=== PATIENT | female | born 1970 | race African-American/Black ===

== ENCOUNTER 2021-11-16 12:30 | Outpatient (CLI) | payer OTHER, SELFPAY ==
--- NOTE | ~2021-11-16 | US_ITS ---
EXAMINATION: US pelvic complete w TV EXAM DATE: 11/16/2021 13:31 INDICATION: N95.0 - Postmenopausal bleeding . TECHNIQUE: Pelvic transabdominal and transvaginal sonogram was performed. There are multiple graysca le and Doppler images available for interpretation. There is no prior study for comparison. FINDINGS: Uterus measures 7.1 x 7.1 x 5.3 cm, with multiple fibroids, largest measuring 5 cm. Endome trial stripe measures 5 mm, within normal limits. There is no free pelvic fluid. Right adnexa: The ovary is not identified. There is no adnexal mass. Left adnexa: The ovary measures 2.3 x 1.7 x 1.0 cm and is morphologically normal. Ovarian vascular fl ow confirmed. IMPRESSION: 1. Fibroid uterus. 2. Endometrial stripe within normal limits. Reviewed, dictated and finalized at location A. [employer]
== END 2021-11-16 12:31 | disposition home or self-care (01) ==
LOC: ANHIMG 12:33
PROVIDERS: Visit Provider Obstetrics & Gynecology
DX: N95.0 Postmenopausal bleeding (principal); D25.9 Leiomyoma of uterus, unspecified
CPT/HCPCS: 76830; 76856